=== PATIENT | female | born 1990 | race Caucasian/White ===

== ENCOUNTER 2020-03-07 16:41 | Emergency (ER) | payer MEDICAID, OTHER ==
[~2020-03-07] VITALS: Ht 162.6 cm; Wt 65.0 kg
[2020-03-07 16:44] VITALS: BP 115/77
[2020-03-07] MEDS ORDERED: ibuprofen tablet 400 MG TABLET PO ONE (17:55)
[2020-03-07] MEDS ORDERED: ACET-3068 PO (17:58)
== END 2020-03-07 18:06 | disposition home or self-care (01) ==
LOC: ER 16:42
DX: S43.101A Unspecified dislocation of right acromioclavicular joint, initial encounter (principal); S40.012A Contusion of left shoulder, initial encounter; S20.229A Contusion of unspecified back wall of thorax, initial encounter; F17.200 Nicotine dependence, unspecified, uncomplicated; Z79.899 Other long term (current) drug therapy; W10.9XXA Fall (on) (from) unspecified stairs and steps, initial encounter; Y93.89 Activity, other specified; Y92.89 Other specified places as the place of occurrence of the external cause; Y99.8 Other external cause status
CPT/HCPCS: 29105; 72070; 73000; 73030; 99284; 99285

== ENCOUNTER 2020-08-11 13:32 | Emergency (ER) | payer MEDICAID, OTHER ==
[~2020-08-11] VITALS: Ht 162.6 cm; Wt 59.1 kg
[2020-08-11 13:39] VITALS: BP 117/80
== END 2020-08-11 14:47 | disposition home or self-care (01) ==
LOC: ER 13:33
DX: S50.02XA Contusion of left elbow, initial encounter (principal); F17.200 Nicotine dependence, unspecified, uncomplicated; R20.2 Paresthesia of skin; Z72.89 Other problems related to lifestyle; W01.198A Fall on same level from slipping, tripping and stumbling with subsequent striking against other object, initial encounter; Y93.89 Activity, other specified; Y92.89 Other specified places as the place of occurrence of the external cause; Y99.8 Other external cause status
CPT/HCPCS: 73080; 73090; 99284